=== PATIENT | female | born 1985 | race Two or more races ===

== ENCOUNTER → 2017-10-08 | Outpatient (CLI) | payer OTHER | END | disposition home or self-care (01) | LOC: RAD 501 10:22 | DX: Z00.00 Encounter for general adult medical examination without abnormal findings (principal) ==

== ENCOUNTER 2019-07-12 17:50 | Emergency (ER) | payer OTHER ==
[~2019-07-12] VITALS: Ht 160 cm; Wt 59.0 kg
== END 2019-07-12 23:16 | disposition home or self-care (01) ==
LOC: ER 17:50
DX: O46.8X1 Other antepartum hemorrhage, first trimester (principal)